=== PATIENT | male | born 1960 | race Caucasian/White ===

== ENCOUNTER 2024-09-11 11:15 | Inpatient (IN) | payer MEDICAID ==
[~2024-09-11] VITALS: Ht 172.7 cm; Wt 61.7 kg
[~2024-09-11 11:15] MED LIST: ASPI-1457 PO; CALC-939 PO; CLOP75TA32 PO; DIVA-74 PO; ESCI10TA PO; FLUO15OI4 TP; FLUO60SO TP; LEVE500T9 PO; LIP40 PO; MULT-1089 PO; NEU100 PO; RISP4TAB4 PO; SER100 PO
[2024-09-11 11:20] VITALS: BP_SYST 104; PULSE 89; RESP 22; TEMP 98.3; O2SAT 94
[2024-09-11 11:57] LABS: BASOPHILS % (AUTO) 0.6 % (0.0-2.0); EOSINOPHILS # (AUTO) 0.2 K/uL (0.0-0.4); EOSINOPHILS % (AUTO) 2.6 % (0.0-4.0); HEMATOCRIT 45.9 % (36-54); HEMOGLOBIN 15.5 g/dL (14.0-18.0); LYMPHOCYTES # (AUTO) 1.8 K/uL (1.0-5.5); MEAN CORPUSCULAR HEMOGLOBIN 33 pg (27-31); MEAN CORPUSCULAR HGB CONC 34 % (32-36); MEAN CORPUSCULAR VOLUME 96 fL (79.0-98.0); MONOCYTES # (AUTO) 0.9 K/uL (0.0-1.0); MONOCYTES % (AUTO) 13.2 % (1.7-9.3); NEUTROPHILS # (AUTO) 4.2 K/uL (1.8-7.7); NEUTROPHILS % (AUTO) 58.6 % (40.0-70.0); PLATELET COUNT (AUTO) 214 K/uL (130-430); RED BLOOD CELL COUNT(AUTO) 4.77 MIL/uL (4.2-6.2); RED CELL DISTRIBUTION WIDTH 14.7 % (9.0-15.0); WHITE BLOOD COUNT (AUTO) 7.2 K/uL (4.8-10.8)
[2024-09-11 12:24] LABS: INR 1.1 (0.80-1.20); PROTHROMBIN TIME 11.1 SECS (9.5-12.5)
[2024-09-11 12:38] LABS: ALANINE AMINOTRANSFERASE 162 U/L (12-78); ALBUMIN 2.6 g/dL (3.4-4.8); ANION GAP 6 (5-15); ASPARTATE AMINOTRANSFERASE 156 U/L (10-37); BILIRUBIN,DIRECT 0.2 mg/dL (0.0-0.3); CARBON DIOXIDE 29 mmol/L (23-29); CHLORIDE 107 mmol/L (98-107); CREATINE KINASE, TOTAL 55 U/L (39-308); CREATININE 0.78 mg/dL (0.55-1.30); GFR AFRICAN AMERICAN 129 mL/min (>90); GLUCOSE 112 mg/dL (74-106); POTASSIUM 3.8 mmol/L (3.5-5.1); SODIUM SERUM 142 mmol/L (136-145); TOTAL BILIRUBIN 0.4 mg/dL (0.0-1.0); TOTAL PROTEIN, SERUM 7.1 g/dL (6.4-8.3); UREA NITROGEN, BLOOD 8 mg/dL (8-21); VALPROIC ACID 59 ug/mL (50-100)
[2024-09-11 12:39] LABS: GFR NON AFRICAN-AMERICAN 107 mL/min (>90)
[2024-09-11] MEDS: ASPIRIN 81 MG TAB.CHEW PO ONE ×2 (14:24→16:47)
[2024-09-11] MEDS ORDERED: LEVE100S PO (14:35)
[2024-09-11] MEDS ORDERED: ACETAMINOPHEN 325 MG TABLET PO PRN (16:00)
[2024-09-11] MEDS ORDERED: ONDANSETRON HCL 4 MG/2 ML VIAL IVP PRN (16:00)
[2024-09-11] MEDS ORDERED: MORPHINE 2 MG/ML INJ. SYRINGE IVP PRN (16:00)
[2024-09-11] MEDS: NACL 0.9% 1,000 ML IV SCH (16:47)
[2024-09-11 18:25] VITALS: BP_SYST 112; PULSE 60; RESP 19; TEMP 97.9; O2SAT 96
[2024-09-11 20:00] VITALS: BP_SYST 120; PULSE 76; RESP 18; TEMP 98.6; O2SAT 99
[2024-09-11 21:00] VITALS: BP_SYST 120; PULSE 76; RESP 18; TEMP 98.6; O2SAT 99
[2024-09-12 00:10] VITALS: BP_SYST 109; PULSE 100; RESP 18; TEMP 97.8; O2SAT 98
[2024-09-12 05:42] LABS: BASOPHILS # (AUTO) 0.1 K/uL (0.0-0.2); BASOPHILS % (AUTO) 0.9 % (0.0-2.0); EOSINOPHILS # (AUTO) 0.3 K/uL (0.0-0.4); EOSINOPHILS % (AUTO) 4.2 % (0.0-4.0); HEMATOCRIT 41.3 % (36-54); HEMOGLOBIN 13.8 g/dL (14.0-18.0); LYMPHOCYTES # (AUTO) 2.5 K/uL (1.0-5.5); LYMPHOCYTES % (AUTO) 34.8 % (20.5-51.5); MEAN CORPUSCULAR HEMOGLOBIN 32 pg (27-31); MEAN CORPUSCULAR HGB CONC 33 % (32-36); MEAN CORPUSCULAR VOLUME 96 fL (79.0-98.0); MONOCYTES # (AUTO) 0.9 K/uL (0.0-1.0); NEUTROPHILS # (AUTO) 3.5 K/uL (1.8-7.7); NEUTROPHILS % (AUTO) 48.1 % (40.0-70.0); PLATELET COUNT (AUTO) 225 K/uL (130-430); RED CELL DISTRIBUTION WIDTH 14.4 % (9.0-15.0); WHITE BLOOD COUNT (AUTO) 7.3 K/uL (4.8-10.8)
[2024-09-12 06:17] LABS: ALBUMIN 2.5 g/dL (3.4-4.8); CALCIUM 8.7 mg/dL (8.4-11.0); CREATININE 0.73 mg/dL (0.55-1.30); PHOSPHORUS 3.5 mg/dL (2.7-4.5); POTASSIUM 3.5 mmol/L (3.5-5.1); TOTAL BILIRUBIN 0.6 mg/dL (0.0-1.0); TOTAL PROTEIN, SERUM 6.5 g/dL (6.4-8.3)
[2024-09-12 08:00] VITALS: BP_SYST 125; PULSE 85; RESP 16; TEMP 97.7; O2SAT 96
[2024-09-12] MEDS ORDERED: ESCITALOPRAM OXALATE 10 MG TABLET PO SCH (09:15)
[2024-09-12] MEDS: HYDROcodone/ACETAMIN 5-325 MG TAB (NORCO/ VICODIN) PO PRN (10:07)
[2024-09-12] MEDS: ASPIRIN 81 MG TAB.CHEW PO SCH (10:12)
[2024-09-12] MEDS: BENZTROPINE MESYLATE 1 MG TABLET PO SCH (10:12)
[2024-09-12 12:00] VITALS: BP_SYST 115; PULSE 89; RESP 17; TEMP 98.2; O2SAT 98
[2024-09-12] MEDS: GABAPENTIN 100 MG CAPSULE PO SCH (13:00)
[2024-09-12] MEDS: MULTIVITAMINS TAB 1 TABLET PO ONE (14:36)
[2024-09-12] MEDS: ATORVASTATIN 20 MG TABLET PO ONE (14:37)
[2024-09-12] MEDS: risperiDONE 1 MG TABLET (RisperDAL) PO ONE (14:38)
[2024-09-12] MEDS: DIVALPROEX SODIUM 250 MG TABLET(DEPAKOTE) PO SCH (14:38)
[2024-09-12] MEDS: QUEtiapine FUMARATE 25 MG TABLET PO ONE (14:39)
[2024-09-12] MEDS: LevETIRAcetam 500 MG/5 ML UDC ORAL LIQUID PO ONE (14:49)
[2024-09-12 16:28] VITALS: BP_SYST 120; PULSE 87; RESP 16; TEMP 98; O2SAT 97
[2024-09-12 20:00] VITALS: BP_SYST 105; PULSE 90; RESP 18; TEMP 98.2; O2SAT 95
[2024-09-12] MEDS ORDERED: ATORVASTATIN 20 MG TABLET PO SCH (21:00)
[2024-09-12] MEDS ORDERED: risperiDONE 1 MG TABLET (RisperDAL) PO SCH (21:00)
[2024-09-12] MEDS: QUEtiapine FUMARATE 25 MG TABLET PO SCH (21:15)
[2024-09-12] MEDS: CALCIUM CARBONATE/VITAMIN D3 1 TAB TABLET PO SCH (21:15)
[2024-09-12] MEDS: LevETIRAcetam 500 MG/5 ML UDC ORAL LIQUID PO SCH (21:26)
[2024-09-13 00:45] VITALS: BP_SYST 124; PULSE 68; RESP 16; TEMP 97.3; O2SAT 98
[2024-09-13 08:00] VITALS: BP_SYST 128; PULSE 59; RESP 16; TEMP 97.7; O2SAT 99
[2024-09-13] MEDS: CITALOPRAM HYDROBROMIDE 20 MG TABLET PO SCH (09:03)
[2024-09-13] MEDS: MULTIVITAMINS TAB 1 TABLET PO SCH (09:03)
[2024-09-13] MEDS: ATORVASTATIN 20 MG TABLET PO SCH (09:04)
[2024-09-13 09:14] LABS: BASOPHILS # (AUTO) 0.1 K/uL (0.0-0.2); BASOPHILS % (AUTO) 1.1 % (0.0-2.0); EOSINOPHILS # (AUTO) 0.4 K/uL (0.0-0.4); EOSINOPHILS % (AUTO) 6.2 % (0.0-4.0); HEMATOCRIT 42.2 % (36-54); LYMPHOCYTES # (AUTO) 2.5 K/uL (1.0-5.5); MEAN CORPUSCULAR HEMOGLOBIN 32 pg (27-31); MEAN CORPUSCULAR HGB CONC 33 % (32-36); MEAN CORPUSCULAR VOLUME 96 fL (79.0-98.0); MONOCYTES # (AUTO) 0.7 K/uL (0.0-1.0); MONOCYTES % (AUTO) 11.9 % (1.7-9.3); NEUTROPHILS # (AUTO) 2.3 K/uL (1.8-7.7); NEUTROPHILS % (AUTO) 38.8 % (40.0-70.0); PLATELET COUNT (AUTO) 207 K/uL (130-430); RED BLOOD CELL COUNT(AUTO) 4.38 MIL/uL (4.2-6.2); RED CELL DISTRIBUTION WIDTH 14.1 % (9.0-15.0); WHITE BLOOD COUNT (AUTO) 5.9 K/uL (4.8-10.8)
[2024-09-13 09:39] LABS: ALBUMIN 2.3 g/dL (3.4-4.8); CALCIUM 8.6 mg/dL (8.4-11.0); CREATININE 0.67 mg/dL (0.55-1.30); POTASSIUM 3.8 mmol/L (3.5-5.1); TOTAL BILIRUBIN 0.6 mg/dL (0.0-1.0); TOTAL PROTEIN, SERUM 6.2 g/dL (6.4-8.3)
[2024-09-13 12:00] VITALS: BP_SYST 130; PULSE 62; RESP 16; TEMP 97.5; O2SAT 99
[2024-09-13 16:00] VITALS: BP_SYST 108; PULSE 67; RESP 16; TEMP 97.9; O2SAT 99
[2024-09-13 19:30] VITALS: BP_SYST 123; PULSE 66; RESP 18; TEMP 97.7; O2SAT 99
[2024-09-14 00:14] VITALS: BP_SYST 114; PULSE 72; RESP 16; TEMP 97.9; O2SAT 97
[2024-09-14 07:45] VITALS: BP_SYST 122; PULSE 68; RESP 10; TEMP 97.4; O2SAT 94
[2024-09-14 08:55] VITALS: O2SAT 94
[2024-09-14 11:07] LABS: BASOPHILS # (AUTO) 0.1 K/uL (0.0-0.2); BASOPHILS % (AUTO) 0.9 % (0.0-2.0); EOSINOPHILS # (AUTO) 0.4 K/uL (0.0-0.4); EOSINOPHILS % (AUTO) 6.3 % (0.0-4.0); HEMATOCRIT 41.3 % (36-54); HEMOGLOBIN 13.8 g/dL (14.0-18.0); LYMPHOCYTES # (AUTO) 1.9 K/uL (1.0-5.5); LYMPHOCYTES % (AUTO) 29.9 % (20.5-51.5); MEAN CORPUSCULAR HEMOGLOBIN 32 pg (27-31); MEAN CORPUSCULAR HGB CONC 34 % (32-36); MEAN CORPUSCULAR VOLUME 96 fL (79.0-98.0); MONOCYTES # (AUTO) 0.7 K/uL (0.0-1.0); MONOCYTES % (AUTO) 11.1 % (1.7-9.3); NEUTROPHILS # (AUTO) 3.4 K/uL (1.8-7.7); NEUTROPHILS % (AUTO) 51.8 % (40.0-70.0); PLATELET COUNT (AUTO) 205 K/uL (130-430); RED BLOOD CELL COUNT(AUTO) 4.28 MIL/uL (4.2-6.2); RED CELL DISTRIBUTION WIDTH 14.4 % (9.0-15.0); WHITE BLOOD COUNT (AUTO) 6.5 K/uL (4.8-10.8)
[2024-09-14 11:21] LABS: ALBUMIN 2.3 g/dL (3.4-4.8); CALCIUM 8.4 mg/dL (8.4-11.0); CREATININE 0.69 mg/dL (0.55-1.30); POTASSIUM 3.4 mmol/L (3.5-5.1); TOTAL BILIRUBIN 0.5 mg/dL (0.0-1.0)
[2024-09-14 12:23] VITALS: BP_SYST 121; PULSE 58; RESP 18; TEMP 98.5; O2SAT 97
[2024-09-14] MEDS ORDERED: BENZ1TAB82 PO (13:39)
[2024-09-14] MEDS ORDERED: POTASSIUM CHLORIDE 20 MEQ TABLET.ER PO ONE (13:45)
[2024-09-14 15:48] VITALS: BP_SYST 117; PULSE 62; RESP 12; TEMP 97.8; O2SAT 99
[2024-09-14 15:50] VITALS: BP_SYST 117; PULSE 62; RESP 12; TEMP 97.8; O2SAT 99
== END 2024-09-14 15:40 | DRG 42 ==
LOC: SED 11:15 → STU 15:49
PROVIDERS: ADMIT Student in an Organized Health Care Education/Training Program; ATTEND Student in an Organized Health Care Education/Training Program
PROC: 4A00X4Z Measurement of Central Nervous Electrical Activity, External Approach (ICD-10-PCS; principal; 2024-09-12)
DX: G25.79 Other drug induced movement disorders (principal); G92.9 Unspecified toxic encephalopathy; E43 Unspecified severe protein-calorie malnutrition; F25.9 Schizoaffective disorder, unspecified; J44.9 Chronic obstructive pulmonary disease, unspecified; I10 Essential (primary) hypertension; F31.9 Bipolar disorder, unspecified; E78.5 Hyperlipidemia, unspecified; K80.20 Calculus of gallbladder without cholecystitis without obstruction; E87.6 Hypokalemia; T43.595A Adverse effect of other antipsychotics and neuroleptics, initial encounter; R74.01 Elevation of levels of liver transaminase levels; Z68.20 Body mass index [BMI] 20.0-20.9, adult; Z88.0 Allergy status to penicillin; Y92.89 Other specified places as the place of occurrence of the external cause
CPT/HCPCS: 36415; 70450-TC; 70551; 71045; 76705; 80048; 80053; 80076; 80164; 82140; 82550; 83605; 83735; 84100; 84484; 85025; 85610; 85730; 87081; 92610-GN; 93005; 93306; 93880; 95816; 97110-GP; 97530-GP; 99285; G0378; J7030